=== PATIENT | female | born 1985 | race Caucasian/White ===

== ENCOUNTER → 2017-03-28 | Outpatient (CLI) | payer OTHER ==
--- NOTE | 2017-03-28 15:21 | RADIOLOGY IMAGING REPORT ---
FACILITY: [facility] [place] PATIENT NAME: Kika Stewart : 1985 MR: [id number] V: [id number] EXAM DATE: ORDERING PHYSICIAN: RAFITA REYNAGA TECHNOLOGIST: Location: [facility] Patient: Kika Stewart : 1985 Visit/Account:[id number] Date of Sevice: 03/28/2017 SELLA IAC W W/O CONTRAST Comparisons: None. Additional pertinent history: Decreased estrogen and testosterone levels. Follicle stimulating hormon e deficiency. TECHNIQUE: Multiplanar, multisequence brain MRI was performed with and without gadolinium contrast.D edicated thin section imaging was performed through the pituitary fossa both in the coronal and sagit miley plane. CONTRAST: 14 ml of MultiHance. FINDINGS: Sagittal midline structures and craniocervical junction: Negative. Midline shift: None. Ventricles: Negative. Brain parenchyma: Diffusion weighted imaging: Negative. Gradient sequence: Not performed T2 weighted FLAIR images: Scattered regions of abnormal increased T2 signal within the periventricu lar and subcortical white matter, nonspecific however several lesions are perpendicular to the latera l ventricles at least raising the potential for underlying demyelinating disease as a cause for these lesions. Dedicated imaging through the pituitary fossa: Pituitary stalk/optic chiasm: Negative Pituitary gland/pituitary fossa: Negative Cavernous sinuses: Negative Skull base flow voids: Negative Extra-axial spaces: Negative. Dural venous sinuses and major arterial flow voids: Negative. Intracranial enhancement: Negative.. Mastoid air cells and paranasal sinuses: Negative. Surrounding soft tissues and orbits: Negative. Impression: 1. Scattered regions of abnormal increased T2 signal with several lesions perpendicular to the latera l ventricles which at least raises the potential for underlying demyelinating disease as a cause for these lesions. 2. No acute intracranial pathology. 3. Normal imaging of the pituitary gland and pituitary fossa. Report Dictated By: Claudio Hernández MD at 03/28/2017 3:13 PM Report E-Signed By: Claudio Hernández MD at 03/28/2017 3:17 PM WSN:[email or web address]
== END ==
LOC: MRI 01:57
PROVIDERS: ATTEND Nurse Practitioner Family
DX: E28.39 Other primary ovarian failure (principal); R79.89 Other specified abnormal findings of blood chemistry; E23.0 Hypopituitarism; N95.1 Menopausal and female climacteric states; N92.6 Irregular menstruation, unspecified
CPT/HCPCS: 70553

== ENCOUNTER → 2017-04-07 | Outpatient (CLI) | payer OTHER ==
--- NOTE | 2017-04-07 16:29 | RADIOLOGY IMAGING REPORT ---
FACILITY: [facility] [place] PATIENT NAME: Kika Stewart : 1985 MR: [id number] V: [id number] EXAM DATE: ORDERING PHYSICIAN: RAFITA REYNAGA TECHNOLOGIST: Location: [facility] Patient: Kika Stewart : 1985 Visit/Account:[id number] Date of Sevice: 04/07/2017 PELVIC HISTORY: Dysmenorrhea. Irregular menses. TECHNIQUE: There has been satisfactory transabdominal and transvaginal ultrasonic evaluation of the p clary. COMPARISON: None. FINDINGS: Uterus: Anteverted; it measures: 7.5 cm length x 3.6 cm AP x 4.2 cm transverse. Myometrium: No findings of fibroids.. Endometrium: The endometrium is mildly thickened. There is. Endometrial lucency somewhat suggestive of adenomyosis but this is difficult to determine on ultrasound imaging at times.; endometrial thick ness 11.9 mm. Cervix: Grossly negative. Ovaries: Right - the right ovary measures 2.1 x 1.3 x 2.0 cm in size. It contains small follicular cysts . Left - left ovary is enlarged measuring 3.1 x 2.0 x 2.6 cm in size. It contains a 2.1 x 2.2 cm cyst that either has a septation or is located adjacent to a smaller cyst. A follow-up ultrasound in several cycles is recommended to document resolution of left ovarian cyst and to follow thickening o f the endometrial canal. Blood flow is documented in each ovary by duplex Doppler ultrasound. Adnexa: Grossly unremarkable. Free pelvic fluid: None. Bladder: Unremarkable. IMPRESSION: 1. Thickening of the endometrium with periendometrial lucency somewhat suggestive of adenomyosis. C orrelation clinical exam is recommended. 2. There is a cyst in the left ovary that measures 2.1 x 2.2 cm in size. It likely represents a per sistent luteal cyst, but a follow-up ultrasound in several cycles is recommended to document resoluti on of this finding and 2 perhaps follow the endometrial canal thickening. Report Dictated By: Aniket Lopes MD at 04/07/2017 4:22 PM Report E-Signed By: Aniket Lopes MD at 04/07/2017 4:25 PM WSN:[email or web address]
== END ==
LOC: US 01:49
PROVIDERS: ATTEND Nurse Practitioner Family
DX: N83.202 Unspecified ovarian cyst, left side (principal); R93.8 Abnormal findings on diagnostic imaging of other specified body structures
CPT/HCPCS: 76856

== ENCOUNTER → 2017-04-21 | Outpatient (CLI) | payer OTHER ==
[~2017-04-21] MED LIST: GADOBENATE 529MG/1ML 15ML VIAL IVP ONE
--- NOTE | 2017-04-21 10:26 | RADIOLOGY IMAGING REPORT ---
FACILITY: [facility] PATIENT NAME: Kika Stewart : 1985 MR: [id number] V: [id number] EXAM DATE: ORDERING PHYSICIAN: SYBIL HENAO TECHNOLOGIST: [facility] Patient: Kika Stewart : 1985 Visit/Account:[id number] Date of Sevice: 04/21/2017 C SPINE W W/O CONTRAST Provided history: Bilateral hand tremors, chronic fatigue, muscle spasms, neck pain. Additional pertinent history: none TECHNIQUE: Multiplanar multisequence cervical MRI was performed without and with intravenous contr ast Contrast dose: 14 mL of MultiHance. COMPARISON STUDIES: none FINDINGS: Extra-spinal soft tissues: Negative Cranio-cervical junction / included posterior fossa: normal Alignment: normal Osseous signal pattern: none Cervical cord: There is a focal T2 hyperintensity in the left lateral cord at the C2-3 level measurin g 7 mm craniocaudal diameter and 3 mm transverse diameter coming close to the surface of the lateral cord. It shows no enhancement or localized mass effect. No additional lesions elsewhere in the cord o r lower brainstem. Disc Spaces: C2-C3: Preserved disk height with abnormal low T2 signal indicating degeneration. No evidence of disk herniation or central stenosis. No significant foraminal stenosis. C3-C4: Preserved disk height with abnormal low T2 signal indicating degeneration. No evidence of disk herniation or central stenosis. No significant foraminal stenosis. C4-C5: Preserved disk height with abnormal low T2 signal indicating degeneration. No evidence of disk herniation or central stenosis. No significant foraminal stenosis. C5-C6: The disk reveals mild narrowing and degeneration. Small right lateralizing disk-osteophy te complex does not optimize the canal. No herniation. No significant foraminal stenosis. C6-C7: Disk height and signal pattern normal. No evidence of disk herniation or central stenosis . No significant foraminal stenosis. C7-T1: Disk height and signal pattern normal. No evidence of disk herniation or central stenosis . No significant foraminal stenosis. Upper T spine: negative IMPRESSION: 1. Nonenhancing T2 hyperintensity in the cord at the left lateral C2-3 level is described above. Diff erential includes an inactive MS plaque, gliosis from prior injury and much less likely neoplasm. The rest of the cord is negative. 2. Only minor degenerative change. No stenotic disease. Report Dictated By: Hilario Norris MD at 04/21/2017 10:15 AM Report E-Signed By: Hilario Norris MD at 04/21/2017 10:21 AM WSN:[email or web address]
== END ==
LOC: MRI 00:48
PROVIDERS: ATTEND Specialist
DX: R90.89 Other abnormal findings on diagnostic imaging of central nervous system (principal); R25.1 Tremor, unspecified; R53.82 Chronic fatigue, unspecified; R68.89 Other general symptoms and signs; R35.0 Frequency of micturition; M62.838 Other muscle spasm; M54.2 Cervicalgia
CPT/HCPCS: 72156; A9577

== ENCOUNTER 2017-05-24 16:26 | Emergency (ER) | payer OTHER ==
--- NOTE | 2017-05-24 16:57 | ER Report ---
History and Physical Time Seen By MD: 16:45 Hx. of Stated Complaint: Pt reporting diarrheal incontinence last night with subsequent bright red blood. Pt has been bleeding since. HPI/ROS chief concern: anal bleeding HPI: 32 y/o female presents with a concern of anal bleeding since last night. Reports past three day history of nausea with vague left quadrant abdominal pain yesterday. States she felt the urge to defecate last night and passed kole red blood with a minor amount of stool. Denies any mucus. Denies vomiting , fevers. Reports being under a significant amount of stress. 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 Reports recent diagnosis of MS last month. States she has an endometrial biopsy scheduled for tomorrow to identify endometriosis. Review of Systems: Respiratory: Denies dyspnea CV: Denies chest pain. GI: Reports nausea; denies vomiting, diarrhea. Reports left quadrant abdominal pain. : Reports kole red anal bleeding. Allergies: Coded Allergies: No Known Drug Allergies (Unverified , 05/24/17) Home Meds Active Scripts Sucralfate (CARAFATE) 1 Gm Tablet, 1 GM PO QID for 30 Days, #60 TAB Take before meals and at bedtime. Crush the tablet and mix with water before taking. Prov:DANITZA WINTER 05/24/17 Omeprazole (OMEPRAZOLE) 40 Mg Capsule.dr, 40 MG PO QDAY for 30 Days, #30 CAP Prov:DANITZA WINTERP 05/24/17 Reported Medications Teriflunomide (AUBAGIO) 14 Mg Tablet, 14 MG PO 05/24/17 Diazepam (DIAZEPAM) 5 Mg Tablet, 5 MG PO QDAY, #15 TAB 05/24/17 Sertraline Hcl (ZOLOFT) 50 Mg Tablet, 1 TAB PO QDAY, TAB 05/24/17 Lamotrigine (LAMICTAL) 25 Mg Tablet, 75 MG PO 05/24/17 Amphet Asp/Amphet/D-Amphet (ADDERALL XR 25 MG CAPSULE) 25 Mg Cap.er.24h, 25 MG PO, CAP 05/24/17 Past Medical/Surgical History History of Multiple sclerosis Reports history of grade 5 heart murmur; reports "possible endometriosis". History of psychiatric disorders, unspecified Reviewed Nurses Notes: Yes Old Medical Records Reviewed: No Hx Smoking: Yes Smoking Status: Current: Every Day Smoker Constitutional Vital Sign - Last 24 Hours 05/24/17 05/24/17 05/24/17 05/24/17 16:44 16:45 16:56 17:00 Temp 99.3 Pulse 76 72 Resp 16 B/P (MAP) 131/76 (94) 131/76 95/47 (63) Pulse Ox 98 100 O2 Delivery Room Air 05/24/17 05/24/17 05/24/17 05/24/17 17:11 17:26 17:30 17:41 Pulse 75 72 75 B/P (MAP) 116/70 (85) Pulse Ox 97 100 99 05/24/17 05/24/17 05/24/17 05/24/17 17:56 18:00 18:30 18:35 Pulse 68 68 B/P (MAP) 113/71 (85) 126/79 (95) Pulse Ox 98 98 05/24/17 05/24/17 05/24/17 05/24/17 18:50 19:00 19:05 19:10 Pulse 75 64 74 B/P (MAP) 107/77 (87) Pulse Ox 90 96 99 05/24/17 05/24/17 05/24/17 19:25 19:30 19:38 Pulse 64 B/P (MAP) 103/82 (89) 119/78 (92) Pulse Ox 98 Intake and Output 05/24/17 05/24/17 05/25/17 15:00 23:00 07:00 Intake Total 1000 ml Balance 1000 ml Physical Exam Physical exam: General: Alert, oriented x3. In no acute distress. Respiratory: Clear to auscultation bilaterally. CV: regular rate and rhythm. GI: bowel sounds normoactive. Scattered tympany and dullness to percussion. Tenderness to palpation LUQ, LLQ. Negative hepatosplenomegaly. : Anus: Four external hemorrhoids noted, without ecchymosis, inflammation, erythema; no evidence of fissures. After obtaining thorough HPI, ROS, and physical exam, the following differentials were considered but not limited to: GI bleed, diverticulitis, irritable bowel disease, colorectal cancer, internal hemorrhoids. Medical Decision Making Data Points Result Diagram: 05/24/17 1747 05/24/17 174 Laboratory Hematology Test 05/24/17 17:35 05/24/17 17:47 Stool Occult Blood (IFOB) Positive (NEGATIVE) Red Blood Count 4.59 M/uL (4.17-5.56) Mean Corpuscular Volume 88.9 fL (80.0-96.0) Mean Corpuscular Hemoglobin 29.5 pg (26.0-33.0) Mean Corpuscular Hemoglobin Concent 33.2 g/dL (32.0-36.0) Red Cell Distribution Width 13.6 % (11.5-14.5) Mean Platelet Volume 8.3 fL (7.2-11.1) Neutrophils (%) (Auto) 58.4 % (39.4-72.5) Lymphocytes (%) (Auto) 30.3 % (17.6-49.6) Monocytes (%) (Auto) 9.8 % (4.1-12.4) Eosinophils (%) (Auto) 1.2 % (0.4-6.7) Basophils (%) (Auto) 0.3 % (0.3-1.4) Nucleated RBC Relative Count (auto) 0.0 /100WBC Neutrophils # (Auto) 4.0 K/uL (2.0-7.4) Lymphocytes # (Auto) 2.1 K/uL (1.3-3.6) Monocytes # (Auto) 0.7 K/uL (0.3-1.0) Eosinophils # (Auto) 0.1 K/uL (0.0-0.5) Basophils # (Auto) 0.0 K/uL (0.0-0.1) Nucleated RBC Absolute Count (auto) 0.00 K/uL Sodium Level 137 mmol/L (137-145) Potassium Level 3.6 mmol/L (3.5-5.0) Chloride Level 101 mmol/L (98-107) Carbon Dioxide Level 24 mmol/L (22-31) Blood Urea Nitrogen 12 mg/dl (7-18) Creatinine 0.80 mg/dl (0.52-1.04) Glomerular Filtration Rate Calc > 60.0 Random Glucose 85 mg/dl (75-110) Calcium Level 9.3 mg/dl (8.4-10.2) Total Bilirubin 0.8 mg/dl (0.2-1.3) Aspartate Amino Transf (AST/SGOT) 31 U/L (0-35) Alanine Aminotransferase (ALT/SGPT) 45 U/L (0-56) Alkaline Phosphatase 79 U/L (0-126) C-Reactive Protein < 0.5 mg/dl (<1.0) Total Protein 8.0 gm/dl (6.3-8.2) Albumin 4.3 g/dl (3.5-5.0) Human Chorionic Gonadotropin, Qual Negative (NEGATIVE) Chemistry Test 05/24/17 17:35 05/24/17 17:47 Stool Occult Blood (IFOB) Positive (NEGATIVE) White Blood Count 6.9 k/uL (4.5-11.0) Red Blood Count 4.59 M/uL (4.17-5.56) Hemoglobin 13.5 g/dL (12.0-16.0) Hematocrit 40.8 % (34.0-47.0) Mean Corpuscular Volume 88.9 fL (80.0-96.0) Mean Corpuscular Hemoglobin 29.5 pg (26.0-33.0) Mean Corpuscular Hemoglobin Concent 33.2 g/dL (32.0-36.0) Red Cell Distribution Width 13.6 % (11.5-14.5) Platelet Count 205 K/uL (150-450) Mean Platelet Volume 8.3 fL (7.2-11.1) Neutrophils (%) (Auto) 58.4 % (39.4-72.5) Lymphocytes (%) (Auto) 30.3 % (17.6-49.6) Monocytes (%) (Auto) 9.8 % (4.1-12.4) Eosinophils (%) (Auto) 1.2 % (0.4-6.7) Basophils (%) (Auto) 0.3 % (0.3-1.4) Nucleated RBC Relative Count (auto) 0.0 /100WBC Neutrophils # (Auto) 4.0 K/uL (2.0-7.4) Lymphocytes # (Auto) 2.1 K/uL (1.3-3.6) Monocytes # (Auto) 0.7 K/uL (0.3-1.0) Eosinophils # (Auto) 0.1 K/uL (0.0-0.5) Basophils # (Auto) 0.0 K/uL (0.0-0.1) Nucleated RBC Absolute Count (auto) 0.00 K/uL Glomerular Filtration Rate Calc > 60.0 Calcium Level 9.3 mg/dl (8.4-10.2) Total Bilirubin 0.8 mg/dl (0.2-1.3) Aspartate Amino Transf (AST/SGOT) 31 U/L (0-35) Alanine Aminotransferase (ALT/SGPT) 45 U/L (0-56) Alkaline Phosphatase 79 U/L (0-126) C-Reactive Protein < 0.5 mg/dl (<1.0) Total Protein 8.0 gm/dl (6.3-8.2) Albumin 4.3 g/dl (3.5-5.0) Human Chorionic Gonadotropin, Qual Negative (NEGATIVE) ED Course/Re-evaluation ED Course Patient admitted to exam room. Thorough HPI and ROS obtained. Physical exam revealed lungs clear to auscultation, heart regular rate and rhythm; bowel sounds normoactive all quadrants, scattered tympany and dullness to percussion, mild tenderness to palpation. Anal exam revealed four hemorrhoids surrounding anus, coloring similar to surrounding skin with no erythema, inflammation, or ecchymosis. No fissures, external evidence of blood. After obtaining thorough HPI, ROS, and physical exam, the following differentials were considered but not limited to: GI bleed, diverticulitis, irritable bowel disease, colorectal cancer, internal hemorrhoids. Tests completed include: CBC, CMP, stool occult blood test, abdominal/pelvis CT. Stool occult blood test positive. CBC and CMP with no abnormalities. CT IMPRESSION: 1. No acute intra-abdominal abnormality Findings discussed with patient, as well as recommended treatment for GI bleed. Prescribed omeprazole and carafate. Referred patient to Dr. Maravilla for follow up and colonoscopy. Patient verbalized understanding and agreed to plan. Decision to Disposition Date: May 24, 2017 Decision to Disposition Time: 19:35 Depart Departure Latest Vital Signs Vital Signs Date Time Temp Pulse Resp B/P (MAP) Pulse Ox O2 Delivery O2 Flow Rate FiO2 05/24/17 19:38 119/78 (92) 05/24/17 19:25 64 98 05/24/17 16:45 99.3 16 Room Air Impression: Primary Impression: GI bleed Condition: Improved Disposition: HOME OR SELF-CARE Referrals: GRACIELA MARAVILLA MD New Scripts Sucralfate (CARAFATE) 1 Gm Tablet 1 GM PO QID for 30 Days, #60 TAB Take before meals and at bedtime. Crush the tablet and mix with water before taking. Prov: DANITZA WINTER 05/24/17 Omeprazole (OMEPRAZOLE) 40 Mg Capsule.dr 40 MG PO QDAY for 30 Days, #30 CAP Prov: DANITZA WINTER 05/24/17 Patient Instructions: Gastrointestinal Bleeding (ED) Additional Instructions: Take omeprazole and Carafate as directed. Follow up tomorrow with Dr. Maravilla for colonoscopy. Rest, increase fluid intake. Return to ED if symptoms worsen. Problem Qualifiers Primary Impression: GI bleed GI bleed type/associated pathology: unspecified gastrointestinal hemorrhage type Qualified Codes: K92.2 - Gastrointestinal hemorrhage, unspecified DANITZA WINTER May 24, 2017 16:57
[2017-05-24] MEDS ORDERED: NS(*) 0.9% 1000 ML BAG 1,000 ML IV ONE (17:30)
[2017-05-24 17:59] LABS: PLATELET COUNT, AUTOMATED 205 K/uL (150-450)
[2017-05-24] MEDS ORDERED: IOPAMIDOL 76% 75 ML INFUS BTL 75 ML ONE (18:14)
[2017-05-24] MEDS ORDERED: TERI14TA PO (18:42)
[2017-05-24] MEDS ORDERED: LAMO25TA64 PO (18:42)
[2017-05-24] MEDS ORDERED: DIAZ-308 PO (18:42)
[2017-05-24] MEDS ORDERED: AMPH25CA9 PO (18:42)
[2017-05-24] MEDS ORDERED: SERT-1 PO (18:42)
--- NOTE | 2017-05-24 18:55 | RADIOLOGY IMAGING REPORT ---
FACILITY: [facility] [place] PATIENT NAME: Kika Stewart : 1985 MR: [id number] V: [id number] EXAM DATE: ORDERING PHYSICIAN: DANITZA WINTER TECHNOLOGIST: Location: [facility] Patient: Kika Stewart : 1985 Visit/Account:[id number] Date of Sevice: 05/24/2017 CT abdomen and pelvis with IV contrast Indication: Abdominal pain. Anal bleeding since yesterday. Comparison: None available. . Technique: Axial CT images were obtained through the abdomen and pelvis during injection of nonioni c iodinated intravenous contrast. Reformatted coronal and sagittal images were also obtained. One of the following dose optimization techniques was utilized in the performance of this exam: Autom ated exposure control; adjustment of the mA and/or kV according to the patient's size; or use of an i terative reconstruction technique. Specific details can be referenced in the facility's radiology C T exam operational policy. Contrast: 75 ml of Isovue-370 IV contrast. Findings: Lower lung riddle: Limited views lower lung field are unremarkable. Liver: No focal parenchymal abnormality of the liver. Biliary: Gallbladder appears unremarkable as well as the intra and extra hepatic biliary system. Pancreas: Normal appearance. Spleen: Normal appearance. Adrenal glands: Unremarkable. Kidneys / retroperitoneum: No evidence of nephrolithiasis or hydronephrosis. No focal normality. Bowel / peritoneum / mesenteries: Visualized gastrointestinal tract, including the appendix, within n ormal limits. Tiny free fluid seen in pelvis most likely physiologic. No fluid collections, free air or areas of in flammation. Tiny umbilical hernia containing fat. Lymph node assessment: No pathologic adenopathy identified. Pelvic structures: Appear unremarkable. Vessels: No significant atherosclerotic calcifications seen throughout a nonaneurysmal abdominal aort a and branches. Musculoskeletal / Body wall: No acute or aggressive osseous abnormality. IMPRESSION: 1. No acute intra-abdominal abnormality Report Dictated By: Maxim Daugherty at 05/24/2017 6:45 PM Report E-Signed By: Maxim Daugherty at 05/24/2017 6:51 PM WSN:[id number]
[2017-05-24] MEDS ORDERED: OMEP40CA48 PO (19:34)
[2017-05-24] MEDS ORDERED: SUCR1TAB85 PO (19:34)
[2017-05-24 19:38] VITALS: BP 119/78
== END 2017-05-24 19:49 | disposition home or self-care (01) ==
LOC: ER 16:56
DX: K92.2 Gastrointestinal hemorrhage, unspecified (principal)
CPT/HCPCS: 74177; 82274; 84703; 85025; 86140; 96360; 96361; 99284; J7030; Q9967; 82040; 82247; 82310; 82374; 82435; 82565; 82947; 84075; 84132; 84155; 84295; 84450; 84460; 84520

== ENCOUNTER 2017-05-31 02:45 | Day surgery (SDC) | payer OTHER ==
[~2017-05-31] VITALS: Ht 170.2 cm; Wt 62.6 kg
[~2017-05-31 02:45] MED LIST changes: +AMPH25CA9 PO; +DIAZ-308 PO; -GADOBENATE 529MG/1ML 15ML VIAL IVP ONE; +GOLYTE PO; +LAMO25TA64 PO; +OMEP40CA48 PO; +SERT-1 PO; +SUCR1TAB85 PO; +TERI14TA PO
[2017-05-31] MEDS ORDERED: NORMOSOL R SOLN(*) 1000 ML BAG 1,000 ML IV PRN (08:30)
[2017-05-31] MEDS ORDERED: LIDOCAINE/SOD BICARB 8.4% SYR ID ONE (08:30)
[2017-05-31 08:47] VITALS: BP 104/68
[2017-05-31] MEDS ORDERED: MULT1CAP59 PO (09:25)
[2017-05-31] MEDS ORDERED: CELE-1 PO (09:25)
[2017-05-31] MEDS ORDERED: LOOVRAL PO (09:25)
[2017-05-31 10:28] VITALS: BP 94/57
--- NOTE | 2017-05-31 10:41 | Short(Outpt) Discharge Summary ---
Discharge Summary Reason for Hosp/Final Diag: (1) Hematochezia Status: Chronic Hospital Course & Plan: Colonoscopy completed without problems. (2) Mucus in stool Status: Chronic (3) Lower abdominal pain Status: Chronic Departure Discharge to: Home, Self Care Discharge Instructions Home Meds Active Scripts Peg/Electrolytes (GOLYTELY SOLUTION) 4,000 Ml Soln, 1 GAL PO ONCE, #1 GAL 0 Refills Prov:FELIPE MARAVILLA MD 05/30/17 Sucralfate (CARAFATE) 1 Gm Tablet, 1 GM PO QID for 30 Days, #60 TAB Take before meals and at bedtime. Crush the tablet and mix with water before taking. Prov:DANITZA WINTER 05/24/17 Omeprazole (OMEPRAZOLE) 40 Mg Capsule.dr, 40 MG PO QDAY for 30 Days, #30 CAP Prov:DANITZA WINTER 05/24/17 Reported Medications Celecoxib (CELEBREX) 200 Mg Capsule, 200 MG PO BID, CAPSULE Take 1 cap PO BID prior to menses. 05/31/17 Multivitamin (MULTIVITAMINS) 1 Each Capsule, 1 EACH PO QDAY, CAPSULE 05/31/17 Norgestrel-Ethinyl Estradiol (LOW-OGESTREL) 1 Each Tab, 1 EACH PO QDAY, TAB 05/31/17 Teriflunomide (AUBAGIO) 14 Mg Tablet, 14 MG PO QDAY 05/24/17 Diazepam (DIAZEPAM) 5 Mg Tablet, 5 MG PO QDAY Y for ANXIETY, #15 TAB 05/24/17 Sertraline Hcl (ZOLOFT) 50 Mg Tablet, 1 TAB PO QDAY, TAB 05/24/17 Lamotrigine (LAMICTAL) 25 Mg Tablet, 75 MG PO QDAY 05/24/17 Amphet Asp/Amphet/D-Amphet (ADDERALL XR 25 MG CAPSULE) 25 Mg Cap.er.24h, 25 MG PO QDAY, CAP 05/24/17 Follow up Referrals: General Surgery - 06/14/17 @ Surgery, General with Felipe Maravilla Md You have a follow up appointment scheduled with Dr. Maravilla on 06/14/17, at 2: 00pm. Diet: Regular Activity: As Tolerated Special Instructions: Your colonoscopy was completed without any problems and your prep was excellent (Good Job!!). I didn't find any polyps, cancers, or inflammation; it was a normal colonoscopy. I am going to start you on a bowel regimen and then I'll see you back in my office in 2 weeks and see how you are doing on this regimen. Try stopping the carafate and omeprazole while we try the bowel regimen so we can try and figure out if the bowel regimen is working by itself. FELIPE MARAVILLA MD May 31, 2017 10:40
[2017-05-31 10:45] VITALS: BP 100/62
[2017-05-31 11:00] VITALS: BP 112/91
[2017-05-31 11:34] VITALS: BP 121/89
[2017-05-31 11:35] VITALS: BP 113/69
== END 2017-05-31 11:45 | disposition home or self-care (01) ==
LOC: OR 02:45
PROVIDERS: ATTEND Surgery
DX: K92.1 Melena (principal)
CPT/HCPCS: 81025

== ENCOUNTER → 2017-06-15 | Outpatient (CLI) | payer OTHER ==
[~2017-06-15] MED LIST changes: +CELE-1 PO; +LOOVRAL PO; +MULT1CAP59 PO
--- NOTE | 2017-06-16 09:23 | RADIOLOGY IMAGING REPORT ---
FACILITY: [facility] PATIENT NAME: MIGUEL RIVERA : [id number] MR: [id number] V: [id number] EXAM DATE: ORDERING PHYSICIAN: ALEXANDRA SMITH TECHNOLOGIST: Alexandra Hutchison EXAMINATION:TWO-DIMENSIONAL ECHOCARDIOGRAPH REASON:MURMUR 2D Measurements (normal values in centimeters) LV endLV endRV endVent.LV PostAorticLeftPercent DiastolicSystolicDiastolicSeptumWallRootAtriumShortening (3.5-5.7)(0.9-2.6)(0.6-1.1)(0.6-1.1)(2.0-3.7)(1.9-4.0)(25-35%) [id number]% STROKE VOLUME: 53ml ESTIMATED EJECTION FRACTION:62% PARASTERNAL LONG AXIS: Overall left ventricular systolic function appears to be normal. Chamber sizes are also normal. Color examination of the valves reveals a trace of mitral insufficiency. Possible small ventricular septal defect is noted. It's at the base of the ventricular septum. In other views it appears to be at least moderate. PARASTERNAL SHORT AXIS: Overall left ventricular systolic function again appears to be normal. No wall motion abnormalities are noted. The ventricular septal defect is noted. Aortic valve is trileaflet in configuration & appears to open normally. Color examination of the aortic valve was unremarkable. Mild amount of tricuspid insufficiency is noted. APICAL FOUR AND TWO CHAMBER: Again normal left ventricular ejection fraction. Normal chamber sizes. Again a basilar interventricular septal defect with a left to right shunt. The tricuspid regurgitation Vmax measured 2.47m/sec. Aortic valve area & mitral valve area both measure within normal ranges at 3.1 & 3.6cm2 respectively. Left atrial & right atrial volumes are measured within normal ranges at 16ml/m2 respectively. No wall motion abnormalities are noted. SUBCOSTAL VIEW: No pericardial effusion was noted. No atrioseptal defects were appreciated. Doppler examination of the mitral valve in diastole does reveal a normal pattern. The E to E prime ratio is within normal ranges. IVC is normal in size. OVERALL IMPRESSION: 1. Normal left ventricular ejection fraction of 62% with normal diastolic function. 2. There are normal chamber sizes. 3. A trileaflet aortic valve with no abnormalities. 4. There is a trace amount of mitral insufficiency & a mild amount of tricuspid insufficiency with estimated right ventricular systolic pressure within normal ranges at 27mm Hg. 5. There is a moderate sized ventricular septal defect at the base of the interventricular septum. There is a left to right shunt. Chamber sizes & volume sizes are normal. Dictated by: Jose Davila M.D. on 06/15/2017 at 19:32 Transcribed by: SHANNON on 06/16/2017 at 9:09 Approved by: Jose Davila M.D. on 06/16/2017 at 9:21 [facility]
== END ==
LOC: US 00:56
PROVIDERS: ATTEND Physician Assistant Medical
DX: I34.0 Nonrheumatic mitral (valve) insufficiency (principal); I07.1 Rheumatic tricuspid insufficiency; Q21.0 Ventricular septal defect
CPT/HCPCS: 93306

== ENCOUNTER 2017-07-04 10:00 | Outpatient (RCR) | payer OTHER ==
--- NOTE | 2017-07-04 09:35 | RADIOLOGY IMAGING REPORT ---
FACILITY: [facility] PATIENT NAME: Kika Stewart : 1985 MR: [id number] V: [id number] EXAM DATE: ORDERING PHYSICIAN: SYBIL HENAO TECHNOLOGIST: Location: [facility] Patient: Kika Stewart : 1985 Visit/Account:[id number] Date of Sevice: 07/04/2017 Patient was unable to have the MRI exam because of anxiety. Patient will need to be rescheduled.. Report Dictated By: Brad Metzger MD at 07/04/2017 9:30 AM Report E-Signed By: Brad Metzger MD at 07/04/2017 9:31 AM WSN:[id number]
--- NOTE | 2017-07-07 18:59 | RADIOLOGY IMAGING REPORT ---
FACILITY: [facility] - [place] PATIENT NAME: Kika Stewart : 1985 MR: [id number] V: [id number] EXAM DATE: ORDERING PHYSICIAN: SYBIL HENAO TECHNOLOGIST: Location: [facility] - [place] Patient: Kika Stewart : 1985 Visit/Account:[id number] Date of Sevice: 07/07/2017 EXAMINATION: T SPINE W W/O CONTRAST INDICATION: MS COMPARISON: None TECHNIQUE: Multiplane MR imaging was performed through the thoracic spine without and with iv contras t. 14 multihance injected uneventfully. FINDINGS: Vertebral body height: Normal Cord signal: No definitive cord signal abnormality. Marrow signal: T6 vertebral body hemangioma. Alignment: Normal. Prevertebral and paraspinal soft tissues: Normal Disc spaces: No significant disc protrusion. Canal narrowing: No canal narrowing. Enhancement: Small enhancing vessels/vessels noted posterior to the cord throughout the thoracic spin e most conspicuous at the T10-11 level, sagittal postcontrast image seven. Additional: CSF pulsation artifact noted posteriorly in the upper and mid thoracic canal on postcontr ast acquisition. IMPRESSION: 1. No cord signal abnormality or cord pathologic enhancement. 2. Enhancing cord vessel/s posterior to the cord most conspicuous posteriorly at the T10 and T11 lev els. This is favored to represent likely benign vascular enhancement. Notably prominent veins adjac ent to the cord can be seen in the setting of dural AV fistulas and follow-up MR may be warranted in one year to document the stability of this finding. 3. Otherwise unremarkable thoracic spine MR without and with contrast. Report Dictated By: Amish Landa MD at 07/07/2017 6:47 PM Report E-Signed By: Amish Landa MD at 07/07/2017 6:55 PM WSN:[id number]
== END 2017-07-07 18:00 | disposition home or self-care (01) ==
LOC: MRI 10:00 → EDSTATUS 07-06 13:46 → MRI 07-07 18:00
PROVIDERS: ATTEND Specialist
DX: G35 Multiple sclerosis (principal); Z79.899 Other long term (current) drug therapy
CPT/HCPCS: 72157; A9577

== ENCOUNTER → 2017-07-28 | Outpatient (CLI) | payer OTHER ==
[~2017-07-28] MED LIST changes: +GADOBENATE 529MG/1ML 15ML VIAL IVP ONE; +NS 0.9% 20 ML SDV 40 ML ONE
--- NOTE | 2017-07-28 13:52 | RADIOLOGY IMAGING REPORT ---
[facility] PATIENT NAME: Kkia Stewart : 1985 MR: [id number] V: [id number] EXAM DATE: ORDERING PHYSICIAN: NOAH PADILLA TECHNOLOGIST: Location: [facility] - [place] Patient: Kika Stewart : 1985 Visit/Account:[id number] Date of Sevice: 07/28/2017 PELVIS W W/O CONTRAST HISTORY: Endometriosis of uterus. TECHNIQUE: Multiplanar multisequence magnetic resonance imaging of the pelvis without and with intra venous contrast. CONTRAST: 14 mL MultiHance IV COMPARISON: None. FINDINGS: Uterus: Unremarkable morphology; 6.2 cm length x 3.6 cm AP x 6.0 cm transverse. Diffuse myometrial h eterogeneity without discrete lesion. Scattered very small T2 hyperintense subendometrial cysts. Al though it would be difficult to exclude a very small focus of adenomyosis anterior at body/fundus whe re the junctional zone is focally thickened (0.7 x 1.5 x 1.4 cm; series 7/image 12), elsewhere the ju nctional zone is within normal limits. Ovaries: Unremarkable; dominant and potentially collapsing follicle right ovary. Urinary bladder: Morphologically unremarkable. Visualized GI: Grossly unremarkable. Vessels/spaces/nodes: Trace free pelvic fluid, likely physiologic. No bulky adenopathy. Bones/soft tissues: Unremarkable. IMPRESSION: 1. Aside from a very small focus of potential uterine adenomyosis within anterior body/fundus, and d espite a number of small subendometrial cysts, elsewhere no gross junctional zone thickening to sugge st diffuse uterine adenomyosis. 2. Otherwise unremarkable ultrasound pelvis. Report Dictated By: Diogo Ferguson MD at 07/28/2017 12:41 PM Report E-Signed By: Diogo Ferguson MD at 07/28/2017 1:47 PM WSN:[id number]
== END ==
LOC: MRI 07-18 02:09
PROVIDERS: ATTEND Specialist
DX: N85.8 Other specified noninflammatory disorders of uterus (principal)
CPT/HCPCS: 72197; A9577; J7050

== ENCOUNTER → 2017-09-01 | Outpatient (CLI) | payer OTHER ==
[~2017-09-01] MED LIST changes: -GADOBENATE 529MG/1ML 15ML VIAL IVP ONE; -NS 0.9% 20 ML SDV 40 ML ONE
--- NOTE | 2017-09-01 15:55 | RADIOLOGY IMAGING REPORT ---
FACILITY: [facility] - [place] PATIENT NAME: Kika Stewart : 1985 MR: [id number] V: [id number] EXAM DATE: ORDERING PHYSICIAN: PALOMO ALBA TECHNOLOGIST: Location: [facility] Patient: Kika Stewart : 1985 Visit/Account:[id number] Date of Sevice: 09/01/2017 DEXA Scan Clinical history: Possible sclerosis. Comparison: None available. LUMBAR SPINE: The bone mineral density (BMD) measured from L1-L4 correlates with a Z-score 0.4 and a T-score of 0.4 which is Normal as defined by the World Health Organization. The corresponding risk of fracture in the lumbar spine is Not increased compared with a young adult reference population. HIP: Bone mineral density (BMD) measured in the Left total hip region correlates with a Z-score -0.1 and a T-score of by 0.2 which is Normal as defined by the World Health Organization. The corresponding ri sk of fracture in the hip is Not increased compared with a young adult reference population. T scor e left femoral neck -0.3 Bone mineral density (BMD) measured in the Femoral Neck region measures 1.003 g/cm2. Impression: 1. Lumbar spine: Normal. 2. Left Hip: Normal. 3. Femoral Neck: Bone Mineral Density is 1.003 g/cm2 The next DEXA scan of this patient should include the following sites: L1-L4 and the left hip. FRAX? WHO Fracture Risk Assessment Tool link: <http://www.shef.ac.uk/FRAX/tool.jsp?locationValue=9> PLEASE NOTE: 1) The World Health Organization defines low BMD as follows: T-score Normal > -1 Osteopenia < -1 and > -2.5 Osteoporosis < -2.5 without fractures Established osteoporosis < -2.5 with fractures 2) In general, you may wish to consider: Diagnosis Treatment Follow-up DEXA Normal BMD Prevention 2-3 years Osteopenia Prevention/therapy 1-2 years Osteoporosis Therapy Yearly 3) Fracture risk estimated from the T-score is more accurate for vertebral fractures (often spontane ous) than for hip fractures. Report Dictated By: Gisela Doss MD at 09/01/2017 3:51 PM Report E-Signed By: Gisela Doss MD at 09/01/2017 3:52 PM WSN:[id number]
== END ==
LOC: RAD 02:26
PROVIDERS: ATTEND Physician Assistant
DX: G35 Multiple sclerosis (principal)
CPT/HCPCS: 77080

== ENCOUNTER → 2018-02-12 | Outpatient (CLI) | payer OTHER ==
[~2018-02-12] MED LIST changes: +GADOBENATE 529MG/1ML 15ML VIAL IVP ONE
--- NOTE | 2018-02-12 12:13 | RADIOLOGY IMAGING REPORT ---
FACILITY: [facility] - [place] PATIENT NAME: Kika Stewart : 1985 MR: [id number] V: [id number] EXAM DATE: ORDERING PHYSICIAN: SYBIL HENAO TECHNOLOGIST: Location: [facility] - [place] Patient: Kika Stewart : 1985 Visit/Account:[id number] Date of Sevice: 02/12/2018 EXAMINATION: MRI Brain without intravenous contrast MRI Brain with intravenous contrast MRI Cervical spine without intravenous contrast MRI Cervical spine with intravenous contrast MRI Thoracic spine without intravenous contrast MRI Thoracic spine with intravenous contrast HISTORY: Multiple sclerosis. COMPARISON: Thoracic spine MRI dated 07/07/2017. Cervical spine MRI dated 04/21/2017. Brain MRI dated . TECHNIQUE: Multi-planar, multi-sequence brain, cervical spine, and thoracic spine MRI was performed before and after IV gadolinium. CONTRAST: 15 mL of IV MultiHance FINDINGS: BRAIN: Brain volume: Normal. Sagittal midline structures: Negative. Ventricles: Negative. Acute ischemic changes: None. Hemorrhage: None. Masses / edema: None. Enhancement: Negative. Burton-white: Negative. White matter: New nonenhancing lesion in the anterior right cerebellar hemisphere (series 3, image 1 2). Otherwise stable mild patchy FLAIR hyperintensity in the periventricular, deep, and subcortical white matter with involvement of the corpus callosum. Vessels: Negative. Extra-axial: None. Calvarium / scalp: Negative. Skull base: Negative. Visualized sinuses / orbits: Negative. Visualized upper neck: Negative. CERVICAL SPINE: Alignment: Normal. Vertebral marrow signal: Negative. Cranio-cervical junction: Negative. Soft tissues: Negative. Cervical cord: Stable T2 hyperintensity in the left lateral spinal cord at C2. No new lesions or abno rmal enhancement. Enhancement pattern: Negative. Disc Spaces: C1-2: Negative. C2-3: Negative. C3-4: Negative. C4-5: Negative. C5-6: Small broad-based disc osteophyte complex, eccentric to the right. No significant stenosis. No significant change. C6-7: Negative. C7-T1: Mild left facet hypertrophy. No significant stenosis. No significant change. THORACIC SPINE: Alignment: Negative. Vertebral marrow signal: Negative. Paravertebral soft tissues: Negative. Thoracic cord: Negative. Enhancement: Negative. Disc Spaces: Small anterior disc osteophyte complexes at T7-T8, T8-T9, and T9-T10. Otherwise negativ e. No significant change. IMPRESSION: 1. New nonenhancing lesion in the anterior right cerebellar hemisphere (series 3, image 12). Otherwi se stable mild patchy FLAIR hyperintensity in the periventricular, deep, and subcortical white matter with involvement of the corpus callosum. 2. Stable T2 hyperintensity in the left lateral spinal cord at C2. No additional lesions in the spina l cord. 3. Stable mild degenerative changes in the cervical and thoracic spine. Report Dictated By: Brad Metzger MD at 02/12/2018 11:50 AM Report E-Signed By: Brad Metzger MD at 02/12/2018 12:08 P
--- NOTE | 2018-02-12 12:13 | RADIOLOGY IMAGING REPORT ---
[place] [facility] [place] NAME: Kika Stewart : 1985 MR: [id number] V: [id number] EXAM DATE: ORDERING PHYSICIAN: SYBIL HENAO TECHNOLOGIST: Location: [facility] - [place] Patient: Kika Stewart : 1985 Visit/Account:[id number] Date of Sevice: 02/12/2018 EXAMINATION: MRI Brain without intravenous contrast MRI Brain with intravenous contrast MRI Cervical spine without intravenous contrast MRI Cervical spine with intravenous contrast MRI Thoracic spine without intravenous contrast MRI Thoracic spine with intravenous contrast HISTORY: Multiple sclerosis. COMPARISON: Thoracic spine MRI dated 07/07/2017. Cervical spine MRI dated 04/21/2017. Brain MRI dated . TECHNIQUE: Multi-planar, multi-sequence brain, cervical spine, and thoracic spine MRI was performed before and after IV gadolinium. CONTRAST: 15 mL of IV MultiHance FINDINGS: BRAIN: Brain volume: Normal. Sagittal midline structures: Negative. Ventricles: Negative. Acute ischemic changes: None. Hemorrhage: None. Masses / edema: None. Enhancement: Negative. Burton-white: Negative. White matter: New nonenhancing lesion in the anterior right cerebellar hemisphere (series 3, image 1 2). Otherwise stable mild patchy FLAIR hyperintensity in the periventricular, deep, and subcortical white matter with involvement of the corpus callosum. Vessels: Negative. Extra-axial: None. Calvarium / scalp: Negative. Skull base: Negative. Visualized sinuses / orbits: Negative. Visualized upper neck: Negative. CERVICAL SPINE: Alignment: Normal. Vertebral marrow signal: Negative. Cranio-cervical junction: Negative. Soft tissues: Negative. Cervical cord: Stable T2 hyperintensity in the left lateral spinal cord at C2. No new lesions or abno rmal enhancement. Enhancement pattern: Negative. Disc Spaces: C1-2: Negative. C2-3: Negative. C3-4: Negative. C4-5: Negative. C5-6: Small broad-based disc osteophyte complex, eccentric to the right. No significant stenosis. No significant change. C6-7: Negative. C7-T1: Mild left facet hypertrophy. No significant stenosis. No significant change. THORACIC SPINE: Alignment: Negative. Vertebral marrow signal: Negative. Paravertebral soft tissues: Negative. Thoracic cord: Negative. Enhancement: Negative. Disc Spaces: Small anterior disc osteophyte complexes at T7-T8, T8-T9, and T9-T10. Otherwise negativ e. No significant change. IMPRESSION: 1. New nonenhancing lesion in the anterior right cerebellar hemisphere (series 3, image 12). Otherwi se stable mild patchy FLAIR hyperintensity in the periventricular, deep, and subcortical white matter with involvement of the corpus callosum. 2. Stable T2 hyperintensity in the left lateral spinal cord at C2. No additional lesions in the spina l cord. 3. Stable mild degenerative changes in the cervical and thoracic spine. Report Dictated By: Brad Metzger MD at 02/12/2018 11:50 AM Report E-Signed By: Brad Metzger MD at 02/12/2018 12:08 P
--- NOTE | 2018-02-12 12:14 | RADIOLOGY IMAGING REPORT ---
FACILITY: [facility] - [place] PATIENT NAME: Kika Stewart : 1985 MR: [id number] V: [id number] EXAM DATE: ORDERING PHYSICIAN: SYBIL HENAO TECHNOLOGIST: Location: [facility] Patient: Kika Stewart : 1985 Visit/Account:[id number] Date of Sevice: 02/12/2018 EXAMINATION: MRI Brain without intravenous contrast MRI Brain with intravenous contrast MRI Cervical spine without intravenous contrast MRI Cervical spine with intravenous contrast MRI Thoracic spine without intravenous contrast MRI Thoracic spine with intravenous contrast HISTORY: Multiple sclerosis. COMPARISON: Thoracic spine MRI dated 07/07/2017. Cervical spine MRI dated 04/21/2017. Brain MRI dated . TECHNIQUE: Multi-planar, multi-sequence brain, cervical spine, and thoracic spine MRI was performed before and after IV gadolinium. CONTRAST: 15 mL of IV MultiHance FINDINGS: BRAIN: Brain volume: Normal. Sagittal midline structures: Negative. Ventricles: Negative. Acute ischemic changes: None. Hemorrhage: None. Masses / edema: None. Enhancement: Negative. Burton-white: Negative. White matter: New nonenhancing lesion in the anterior right cerebellar hemisphere (series 3, image 1 2). Otherwise stable mild patchy FLAIR hyperintensity in the periventricular, deep, and subcortical white matter with involvement of the corpus callosum. Vessels: Negative. Extra-axial: None. Calvarium / scalp: Negative. Skull base: Negative. Visualized sinuses / orbits: Negative. Visualized upper neck: Negative. CERVICAL SPINE: Alignment: Normal. Vertebral marrow signal: Negative. Cranio-cervical junction: Negative. Soft tissues: Negative. Cervical cord: Stable T2 hyperintensity in the left lateral spinal cord at C2. No new lesions or abno rmal enhancement. Enhancement pattern: Negative. Disc Spaces: C1-2: Negative. C2-3: Negative. C3-4: Negative. C4-5: Negative. C5-6: Small broad-based disc osteophyte complex, eccentric to the right. No significant stenosis. No significant change. C6-7: Negative. C7-T1: Mild left facet hypertrophy. No significant stenosis. No significant change. THORACIC SPINE: Alignment: Negative. Vertebral marrow signal: Negative. Paravertebral soft tissues: Negative. Thoracic cord: Negative. Enhancement: Negative. Disc Spaces: Small anterior disc osteophyte complexes at T7-T8, T8-T9, and T9-T10. Otherwise negativ e. No significant change. IMPRESSION: 1. New nonenhancing lesion in the anterior right cerebellar hemisphere (series 3, image 12). Otherwi se stable mild patchy FLAIR hyperintensity in the periventricular, deep, and subcortical white matter with involvement of the corpus callosum. 2. Stable T2 hyperintensity in the left lateral spinal cord at C2. No additional lesions in the spina l cord. 3. Stable mild degenerative changes in the cervical and thoracic spine. Report Dictated By: Brad Metzger MD at 02/12/2018 11:50 AM Report E-Signed By: Brad Metzger MD at 02/12/2018 12:08 P
== END ==
LOC: MRI 03:54
PROVIDERS: ATTEND Specialist
DX: G35 Multiple sclerosis (principal)
CPT/HCPCS: 70553; 72141; 72156; 72157; A9577